=== PATIENT | male | born 1955 | race Caucasian/White ===

== ENCOUNTER 2017-06-02 08:36 | Outpatient (CLI) | payer BC ==
[2017-06-02 10:26] LABS: Mean Platelet Volume 7.2 fL (7.4-10.4); White Blood Cell (WBC) Count 6.1 thou/uL (4.8-10.8)
[2017-06-02 10:30] LABS: Bilirubin Negative (Negative); Blood, Urine Negative (Negative); Glucose, Urine (Dipstick) >=1000 mg/dL (Negative); Ketone, Urine Trace mg/dL (Negative); Nitrite Negative (Negative); Protein, Urine (Dipstick) Negative (Neg-Trace)
[2017-06-02 10:34] LABS: Bacteria/HPF None Seen HPF (None Seen); Hyaline Casts/LPF 0-3 HYALINE CAST LPF (0-3 Hyaline); RBC/HPF 0-3 HPF (0-3); Squamous Epithelial None Seen HPF (0-3); WBC/HPF None Seen HPF (0-3)
[2017-06-02 10:38] LABS: Prothrombin Time 12.6 SEC (12.0-14.7)
[2017-06-02 10:43] LABS: Anion Gap 14 mmol/L (10-20); BUN (Urea Nitrogen) 15 mg/dL (8.4-25.7); Calc. Creatinine Clearance 0 mL/min (70-130); Calcium 10.5 mg/dL (7.8-10.44); Carbon Dioxide 24 mmol/L (23-31); Chloride 103 mmol/L (98-107); Estimated GFR-MDRD 82
--- NOTE | 2017-06-03 07:55 | EKG ---
Test Reason : Blood Pressure : / mmHG Vent. Rate : 085 BPM Atrial Rate : 085 BPM P-R Int : 162 ms QRS Dur : 094 ms QT Int : 374 ms P-R-T Axes : 050 039 046 degrees QTc Int : 445 ms Normal sinus rhythm RSR' or QR pattern in V1 suggests right ventricular conduction delay Borderline ECG No previous ECGs available Confirmed by COLLIN LAMBERT ([id number]) on 06/03/2017 7:54:36 AM Referred By: Jonathan BETANCUR Confirmed By:COLLIN LAMBERT
== END 2017-06-02 08:37 | disposition home or self-care (01) ==
LOC: LABBT 08:36
PROVIDERS: ATTEND Orthopaedic Surgery
DX: Z01.818 Encounter for other preprocedural examination (principal); M17.32 Unilateral post-traumatic osteoarthritis, left knee
CPT/HCPCS: 80048; 81001; 85027; 85610; 86850; 86900; 86901; 87081; 93005; 93010

== ENCOUNTER 2017-06-02 09:00 | Inpatient (IN) | payer BC ==
[2017-06-02 09:14] VITALS: BMI 30.9
--- NOTE | 2017-06-04 09:20 | HP ---
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 He underwent knee arthroscopy in 1977 and ACL reconstructio n in approximately 1989. He has felt progressive pain despite rest, restriction of activities, anti- inflammatory medications, and cortisone injections. He is also taking Glucosamine with some relief. The pain has now progressed to the point it is interfering with day to day activities, including wal srinivas, getting dressed, and sleeping. PAST MEDICAL HISTORY: The patient has a history of gout and diabetes. CURRENT MEDICATIONS: Include Dulaglutide, Cialis, low dose aspirin, glucosamine, multivitamins, metf ormin, Januvia, Invokana, simvastatin. ALLERGIES: He is allergic to FISH, PENICILLIN and KEFLEX. FAMILY HISTORY/SOCIAL HISTORY/REVIEW OF SYSTEMS: Otherwise unremarkable. 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 PHYSICAL EXAMINATION: GENERAL: Reveals a healthy heavyset male. HEENT: Unremarkable. NECK: Supple. CHEST: Clear. HEART: Regular rate and rhythm. ABDOMEN: Soft, nontender. RECTAL/GENITAL: Deferred. EXTREMITIES: Pertinent findings related to the left knee. There is no definite effusion. There is mild varus. There is tenderness and crepitus over the medial joint line. Range of motion is 5-125 d egrees. Previous surgical wounds are healed. Neurovascular exam is intact. Pulses are 1+. LABORATORY AND X-RAY FINDINGS: X-rays of the left knee reveal tricompartmental DJD with progression from previous x-rays and evidence of previous ACL reconstruction with presence of interference screws . IMPRESSION: 1. Post-traumatic degenerative arthritis, left knee. 2. Type 2 diabetes. PLAN: Left total knee replacement and probable removal of at least some of the previous implants. T he nature of the surgery, length of recovery, and potential complications such as infection, loss of motion, incomplete relief, delayed wound healing, neurovascular injury, thromboembolic phenomenon, po ssible transfusion, and need for revision have been discussed in detail.
[2017-06-08] MEDS ORDERED: Vancomycin HCl 1.5 GM in Sodium Chloride 0.9% 250 ML 300 ML IVPB SCH ×2 (06:00→20:00)
[2017-06-08] MEDS ORDERED: Tranexamic Acid 1,000 MG/100 ML BAG ONE ×2 (06:10→09:55)
[2017-06-08] MEDS ORDERED: Levofloxacin 500 mg/D5W 100 ml Premix Bag ONE (06:10)
[2017-06-08] MEDS ORDERED: Fentanyl 100 MCG/2 ML VIAL ONE (06:18)
[2017-06-08] MEDS ORDERED: Midazolam HCl 2 mg/2 ml Vial ONE (06:18)
[2017-06-08] MEDS ORDERED: Ropivacaine 0.2% HCl/PF 20 ML ONE (06:18)
[2017-06-08] MEDS ORDERED: Ondansetron HCl/PF 4 MG/2 ML Vial ONE ×2 (06:23→15:44)
[2017-06-08] MEDS ORDERED: Bupivacaine/Epinephrine 0.25% 30 ML VIAL ONE (06:35)
[2017-06-08] MEDS ORDERED: Lidocaine 1% w/Epinephrine 1:200K 30 ML VIAL ONE (06:35)
[2017-06-08] MEDS ORDERED: Zolpidem Tartrate 5 MG TAB PO PRN ×2 (07:45→10:48)
[2017-06-08] MEDS ORDERED: Ropivacaine HCl/PF 250 ML in Premix Bag 1 BAG NERVE BLCK SCH (07:45)
[2017-06-08] MEDS ORDERED: traMADol HCl 50 MG TAB PO PRN ×2 (07:45)
[2017-06-08] MEDS ORDERED: Promethazine HCl 25 MG/ML VIAL IM PRN ×2 (07:45→08:21)
[2017-06-08] MEDS ORDERED: HYDROcodone/Acetaminophen 10/325 mg Tablet PO PRN ×3 (07:45→10:48)
[2017-06-08] MEDS ORDERED: Ondansetron HCl/PF 4 MG/2 ML Vial IVP PRN ×2 (07:45→08:21)
[2017-06-08] MEDS ORDERED: Fentanyl 100 MCG/2 ML VIAL IV PRN (07:46)
[2017-06-08] MEDS ORDERED: Promethazine HCl 25 MG/ML VIAL SLOW IVP PRN ×2 (08:21→10:48)
[2017-06-08] MEDS ORDERED: Tranexamic Acid 1,000 MG in Sodium Chloride 0.9% 100 ML IVPB SCH ×2 (10:00→10:48)
[2017-06-08] MEDS ORDERED: Fentanyl 100 MCG/2 ML VIAL SLOW IVP PRN ×2 (10:48)
[2017-06-08] MEDS ORDERED: Acetaminophen 325 MG TAB PO PRN (10:48)
[2017-06-08] MEDS ORDERED: diphenhydrAMINE 25 MG CAP PO PRN (10:48)
--- NOTE | 2017-06-08 11:55 | RAD ---
TWO VIEWS OF THE LEFT KNEE: 06/08/2017 HISTORY: Evaluate knee following arthroplasty. FINDINGS: There is postoperative gas within the left knee joint. The patient is status post total knee arthrop lasty with no evidence for hardware failure. No acute fracture or dislocation. IMPRESSION: Postoperative change, consistent with recent total knee arthroplasty. POS: [facility]
[2017-06-08] MEDS ORDERED: Aspirin 81 mg Enteric Coated Tablet PO SCH (12:00)
[2017-06-08] MEDS ORDERED: Dextrose 50% Abboject 50 ML SYRINGE SLOW IVP PRN (12:24)
[2017-06-08] MEDS ORDERED: Benzonatate 100 MG CAP PO PRN (12:24)
[2017-06-08] MEDS ORDERED: cloNIDine 0.1 MG TAB PO PRN (12:24)
[2017-06-08] MEDS ORDERED: Dextrose 5% in Water 1,000 ML IV PRN (12:24)
[2017-06-08] MEDS ORDERED: Mag-Al 1200 mg/1200 mg/30 ML UDCUP PO PRN (12:24)
[2017-06-08] MEDS ORDERED: hydrALAZINE 20 MG/ML VIAL SLOW IVP PRN (12:24)
[2017-06-08] MEDS ORDERED: Loratadine 10 MG TAB PO PRN (12:24)
[2017-06-08] MEDS ORDERED: Lorazepam 1 MG TAB PO PRN (12:24)
[2017-06-08] MEDS ORDERED: Diabetic Tussin 200 MG/10 ML UDCUP PO PRN (12:24)
[2017-06-08] MEDS ORDERED: Calcium Carbonate 500 MG ChewTAB PO PRN (12:24)
[2017-06-08] MEDS ORDERED: Senokot 8.6 MG TAB PO PRN (12:24)
[2017-06-08] MEDS ORDERED: HumaLOG 300 UNITS/3 ML VIAL SC PRN (12:24)
[2017-06-08] MEDS ORDERED: Bisacodyl 5 MG TAB PO PRN (12:24)
[2017-06-08] MEDS ORDERED: Nitroglycerin 0.4 MG TAB (25 Tab Bottle) SL PRN (12:24)
--- NOTE | 2017-06-08 12:28 | OP ---
DATE OF PROCEDURE: 06/08/2017 SURGEON: Alvin Scanlon M.D. ANESTHESIA: General plus femoral and sciatic nerve blocks. PREOPERATIVE DIAGNOSIS: Posttraumatic degenerative arthritis, left knee. POSTOPERATIVE DIAGNOSIS: Posttraumatic degenerative arthritis, left knee. PROCEDURES: Left total knee replacement with computer-assisted navigation with cemented Triathlon co mponents with #5 femoral component and #5 tibial baseplate with 11 mm CS tibial insert, and A35 all p lastic patellar component. OPERATIVE FINDINGS: There was marked degenerative arthritis of the knee, especially medially with la rge areas of exposed bone. There was abundant scar tissue from his previous ACL reconstruction. The interference screw in the proximal tibia did not represented itself and not appear to be interfering with the seating of the keel of the tibial tray and therefore elected to leave it in place. NARRATIVE REPORT: After satisfactory anesthesia was induced in supine position, sequential compressi on device was placed on the non-operative leg throughout the procedure. Left leg was then prepped an d draped in the routine manner. The leg was elevated, exsanguinated with an Esmarch bandage, and the tourniquet inflated to 300 mmHg. A gently curved medial parapatellar incision was made incorporatin g a portion of the previous incision and carried down to subcutaneous tissues. Bleeding points contr olled with Bovie cautery. Medial parapatellar arthrotomy was performed. Patella was dislocated late rally and portions of the fat pad were excised for exposure. The above findings were noted. Menisca l remnants and osteophytes were removed. Using the [employer] pinless navigation system and the appropr iate guides, the distal femoral and proximal tibial articular surfaces were excised with an oscillati ng saw to accept the trial components. It was felt that a #5 femoral component and #5 primary new ti bial baseplate with 11 mm CS plastic insert gave appropriate size, fit, stability, and correction of the preoperative deformity. The patellar articular surface was excised to accept an all plastic A35 patellar component. The trial components were removed. The posterior capsule and subcutaneous tissu es were injected with a mixture of 30 mL of 0.25% Marcaine with epinephrine and 60 mL of 1% lidocaine with epinephrine. The knee was copiously irrigated with pulsatile lavage and bony surfaces thorough ly cleaned and dried. The permanent components were then cemented in a single stage using 1 package of cement premixed with 1 gram of tobramycin powder. Excess cement was removed. There was again goo d fit and stability of the components. The knee was then again copiously irrigated. The medial reti naculum and quadriceps mechanism was closed with interrupted #2 Vicryl and a running #2 Quill. Subcu taneous tissues were closed with running 0 Quill suture and the skin closed with running subcuticular 3-0 Monoderm and SurgiSeal skin adhesive. A sterile bulky compressive dressing was applied and the tourniquet deflated after 107 minutes. The foot promptly pinked up and a sequential compression wesley ce was placed on his operated leg. He was awakened and taken to recovery room in stable condition. There were no apparent intraoperative complications. The estimated blood loss was less than 100 mL
--- NOTE | 2017-06-08 12:59 | PDOC.PN ---
- Subjective Encounter Start Date: 06/08/17 Encounter Start Time: 12:57 Subjective: s/p Left TKR,feels well. worked w PT. -: denies any dizziness/weakness/chest pain/SOB -: IM team consulted for medical mangement.PCP- - Objective MAR Reviewed: Yes Vital Signs & Weight: Weight Weight 216 lb Additional Labs: Laboratory Tests 12/25/16 06/02/17 06/02/17 08:39 09:00 09:00 WBC 6.1 Hgb 15.3 Hct 45.0 Plt Count 224 PT INR Sodium 137 Potassium 4.0 Chloride 103 Carbon Dioxide 24 BUN 15 Creatinine 0.94 Glucose 190 H Hemoglobin A1c 7.8 H 06/02/17 09:00 WBC Hgb Hct Plt Count PT 12.6 INR 0.9 Sodium Potassium Chloride Carbon Dioxide BUN Creatinine Glucose Hemoglobin A1c Phys Exam - Physical Examination Constitutional: NAD HEENT: PERRLA, moist MMs, sclera anicteric, oral pharynx no lesions Neck: no nodes, no JVD, supple, full ROM Respiratory: no wheezing, no rales, no rhonchi, clear to auscultation bilateral Cardiovascular: RRR, no significant murmur, no rub, gallop, irregular Gastrointestinal: soft, non-tender, no distention Musculoskeletal: no edema, pulses present Neurological: non-focal, normal sensation, moves all 4 limbs Psychiatric: normal affect, A&O x 3 Skin: no rash Dx/Plan (1) DM2 (diabetes mellitus, type 2) Status: Chronic Qualifiers: Diabetes mellitus complication status: with hyperglycemia Diabetes mellitus roasterman insulin use: without roasterman use Qualified Code(s): E11.65 - Type 2 diabetes mellitus with hyperglycemia (2) S/P TKR (total knee replacement) Code(s): Z96.659 - PRESENCE OF UNSPECIFIED ARTIFICIAL KNEE JOINT Status: Acute Qualifiers: Laterality: left Qualified Code(s): Z96.652 - Presence of left artificial knee joint - Plan plan discussed w/ family, PT/OT, social problems specialist, incentive spirometry, out of bed/ambulate, DVT proph w/SCDs ASA BID fo rDVT prophylaxis. add PPI for GI prophylaxis. -: Add ISS for Blood sugar control.Cont. Oral hypoglycemics.Accuchecks achs -: am labs. -: hemodynamically stable.meds reviewed. -: add prn anti-hypertensives. will follow * . Review of Systems - Review of Systems Constitutional: negative: Fever, Chills, Sweats, Weakness, Malaise, Other ENT: negative: Ear Pain, Ear Discharge, Nose Pain, Nose Discharge, Nose Congestion, Mouth Pain, Mouth Swelling, Throat Pain, Throat Swelling, Other Respiratory: negative: Cough, Dry, Shortness of Breath, Hemoptysis, SOB with Excertion, Pleuritic Pain, Sputum, Wheezing Cardiovascular: negative: Chest Pain, Palpitations, Orthopnea, Paroxysmal Noc. Dyspnea, Edema, Light Headedness, Other Gastrointestinal: negative: Nausea, Vomiting, Abdominal Pain, Diarrhea, Constipation, Melena, Hematochezia, Other Genitourinary: negative: Dysuria, Frequency, Incontinence, Hematuria, Retention , Other Musculoskeletal: negative: Neck Pain, Shoulder Pain, Arm Pain, Back Pain, Hand Pain, Leg Pain, Foot Pain, Other Neurological: negative: Weakness, Numbness, Incoordination, Change in Speech, Confusion, Seizures, Other - Medications/Allergies Allergies/Adverse Reactions: Allergies Allergy/AdvReac Type Severity Reaction Status Date / Time cephalexin monohydrate Allergy Verified 02/12/13 14:21 [From Keflex] Fish Containing Products Allergy facial Verified 06/02/17 09:15 swelling, hives, n/v Penicillins Allergy Verified 02/12/13 14:21 Medications: Current Medications Acetaminophen (Tylenol) 650 mg PO Q4H PRN PRN Reason: GUZMAN/ T > 101F; Mild Pain (1-3) Hydrocodone Bitart/Acetaminophen ([place]camore 10/325) 1 tab PO Q4H PRN PRN Reason: Pain (1-3) Hydrocodone Bitart/Acetaminophen ([place]camore 10/325) 2 tab PO Q4H PRN PRN Reason: PAIN (4-6) Hydrocodone Bitart/Acetaminophen ([place]camore 10/325) 1 tab PO Q4H PRN PRN Reason: Moderate Pain (4-6) Hydrocodone Bitart/Acetaminophen ([place]camore 10/325) 2 tab PO Q4H PRN PRN Reason: Severe Pain (7-10) Al Hydroxide/Mg Hydroxide (Maalox) 15 ml PO Q4H PRN PRN Reason: Heartburn or Indigestion Alogliptin Benzoate (Alogliptin) 25 mg PO DAILY [facility] Aspirin (Ecotrin) 81 mg PO BID [facility] Aspirin (Ecotrin) 81 mg PO NOW [facility] Stop: 06/08/17 14:00 Benzonatate (Tessalon) 100 mg PO Q4H PRN PRN Reason: Cough Bisacodyl (Dulcolax) 10 mg PO DAILYPRN PRN PRN Reason: Constipation Calcium Carbonate (Tums) 1,000 mg PO Q4H PRN PRN Reason: Heartburn or Indigestion Calcium/Vitamin D (Caltrate 600 + Vit D) 1 tab PO BID [facility] Clonidine (Catapres) 0.1 mg PO Q4H PRN PRN Reason: Systolic BP > 160 Dextrose/Water (Dextrose 50%) 25 gm SLOW IVP PRN PRN PRN Reason: Hypoglycemia Diphenhydramine HCl (Benadryl) 25 mg PO Q6H PRN PRN Reason: Itching Fentanyl (Sublimaze) 50 mcg IV Q1H PRN PRN Reason: BREAKTHRU PAIN Fentanyl (Sublimaze) 50 mcg SLOW IVP Q30MIN PRN PRN Reason: Moderate Pain (4-6) Fentanyl (Sublimaze) 100 mcg SLOW IVP Q1H PRN PRN Reason: Severe Pain (7-10) Ferrous Gluconate (Fergon) 324 mg PO BID [facility] Glucagon (Glucagon) 1 mg IM PRN PRN PRN Reason: Hypoglycemia Guaifenesin (Robitussin Sf) 200 mg PO Q4H PRN PRN Reason: Cough Hydralazine HCl (Apresoline) 10 mg SLOW IVP Q4H PRN PRN Reason: Systolic BP > 170 Ropivacaine 250 ml/ Device 250 mls @ 10 mls/hr NERVE BLCK INF [facility] Tranexamic Acid 1,000 mg/ (Sodium Chloride) 110 mls @ 200 mls/hr IVPB ONE [facility] Stop: 06/08/17 14:00 Levofloxacin 500 mg/ Device 100 mls @ 100 mls/hr IVPB Q24HR [facility] Stop: 06/09/17 06:59 Sodium Chloride (Normal Saline 0.9%) 1,000 mls @ 100 mls/hr IV .Q10H [facility] Vancomycin HCl 1.5 gm/ Sodium (Chloride) 300 mls @ 200 mls/hr IVPB 2000 [facility] Stop: 06/08/17 21:29 Dextrose/Water (D5w) 1,000 mls @ 0 mls/hr IV .Q0M PRN; As Directed PRN Reason: Hypoglycemia Insulin Human Lispro (Humalog) 0 units SC .MODERATE SLIDING SC PRN PRN Reason: Moderate Correctional Scale Insulin Human Lispro (Humalog) 0 units SC .BEDTIME SLIDING SC PRN PRN Reason: Bedtime Correctional Scale Iron/Minerals/Multivitamins (Theragran M) 1 tab PO DAILY [facility] Ketorolac Tromethamine (Toradol) 30 mg IVP Q6HR [facility] Stop: 06/10/17 06:01 Ketorolac Tromethamine (Toradol) 30 mg IVP Q8HR [facility] Stop: 06/10/17 14:01 Loratadine (Claritin) 10 mg PO DAILYPRN PRN PRN Reason: Sinus Symptoms Lorazepam (Ativan) 1 mg PO Q4H PRN PRN Reason: Anxiety/Agitation Metformin HCl (Glucophage) 1,000 mg PO BID-[facility] Nitroglycerin (Nitrostat) 0.4 mg SL Q5MIN PRN PRN Reason: Chest Pain Ondansetron HCl (Zofran) 4 mg IVP Q6H PRN PRN Reason: Nausea/Vomiting Ondansetron HCl (Zofran) 4 mg IVP Q6H PRN PRN Reason: Nausea/Vomiting Pantoprazole Sodium (Protonix) 40 mg PO DAILY [facility] Pantoprazole Sodium (Protonix) 40 mg PO ONE ONE Stop: 06/08/17 12:27 Promethazine HCl (Phenergan) 12.5 mg IM Q4H PRN PRN Reason: Nausea Promethazine HCl (Phenergan) 12.5 mg SLOW IVP Q4H PRN PRN Reason: Nausea/Vomiting Senna (Senokot) 2 tab PO HSPRN PRN PRN Reason: Constipation Senna/Docusate Sodium (Senokot S) 2 tab PO BID [facility] Simvastatin (Zocor) 40 mg PO HS [facility] Sodium Chloride (Flush - Normal Saline) 10 ml IVF PRN PRN PRN Reason: Saline Flush Tramadol HCl (Ultram) 50 mg PO Q6H PRN PRN Reason: Mild Pain (1-3) Tramadol HCl (Ultram) 100 mg PO Q6H PRN PRN Reason: Moderate Pain 4-6 Tramadol HCl (Ultram) 100 mg PO Q6H PRN PRN Reason: Mild Pain (1-3) Zolpidem Tartrate (Ambien) 5 mg PO HSPRN PRN PRN Reason: Insomnia Zolpidem Tartrate (Ambien) 5 mg PO HSPRN PRN PRN Reason: Insomnia
[2017-06-08] MEDS ORDERED: Ketorolac Tromethamine 30 MG/ML VIAL IVP SCH (14:00)
[2017-06-08] MEDS: Sodium Chloride 0.9% 1,000 ML IV SCH ×2 (14:32→20:38)
[2017-06-08] MEDS: Senokot S 8.6-50 MG TAB PO SCH ×2 (14:33→20:39)
[2017-06-08] MEDS: Ketorolac Tromethamine 30 MG/ML VIAL IVP SCH ×3 (14:57→23:18)
[2017-06-08] MEDS ORDERED: Propofol 200 MG/20 ML VIAL ONE (15:44)
[2017-06-08] MEDS ORDERED: Lidocaine 1% PF 5 ML VIAL ONE (15:44)
[2017-06-08] MEDS ORDERED: PHENYLEPHRINE-NS 100 MCG/ML 10 ML SYRINGE ONE (15:44)
[2017-06-08] MEDS ORDERED: Ketorolac Tromethamine 30 MG/ML VIAL ONE (15:44)
[2017-06-08] MEDS ORDERED: Ropivacaine 0.2% HCl/PF (40 MG/20 ML VIAL) ONE (16:22)
[2017-06-08] MEDS: HumaLOG 300 UNITS/3 ML VIAL SC PRN (16:46)
[2017-06-08] MEDS: metFORMIN 500 MG TAB PO SCH (16:48)
[2017-06-08] MEDS: Aspirin 81 mg Enteric Coated Tablet PO SCH (20:39)
[2017-06-08] MEDS: Simvastatin 40 MG TAB PO SCH (20:39)
[2017-06-08] MEDS: Calcium Carbonate + Vit D 1 TAB PO SCH (20:39)
[2017-06-08] MEDS ORDERED: Aspirin 325 MG TAB PO SCH (21:00)
[2017-06-08] MEDS: HYDROcodone/Acetaminophen 10/325 mg Tablet PO PRN (21:47)
[2017-06-09] MEDS: Ondansetron HCl/PF 4 MG/2 ML Vial IVP PRN (02:49)
[2017-06-09] MEDS: HYDROcodone/Acetaminophen 10/325 mg Tablet PO PRN ×4 (02:54→16:53)
[2017-06-09] MEDS: Ketorolac Tromethamine 30 MG/ML VIAL IVP SCH ×3 (05:40→16:55)
[2017-06-09] MEDS: HumaLOG 300 UNITS/3 ML VIAL SC PRN (05:54)
[2017-06-09 06:07] LABS: Hematocrit 38.2 % (42.0-52.0); Mean Platelet Volume 6.9 fL (7.4-10.4); Red Blood Cell (RBC) Count 4.21 mill/uL (4.70-6.10); White Blood Cell (WBC) Count 8.1 thou/uL (4.8-10.8)
[2017-06-09 06:24] LABS: Anion Gap 10 mmol/L (10-20); BUN (Urea Nitrogen) 17 mg/dL (8.4-25.7); Calc. Creatinine Clearance 116 mL/min (70-130); Calcium 9.8 mg/dL (7.8-10.44); Carbon Dioxide 24 mmol/L (23-31); Chloride 106 mmol/L (98-107); Estimated GFR-MDRD 83
[2017-06-09] MEDS: Sodium Chloride 0.9% 1,000 ML IV SCH ×2 (06:34→17:47)
[2017-06-09] MEDS: Senokot S 8.6-50 MG TAB PO SCH ×2 (08:36→20:28)
[2017-06-09] MEDS: Calcium Carbonate + Vit D 1 TAB PO SCH ×2 (08:37→20:28)
[2017-06-09] MEDS: Ferrous Gluconate 324 MG TAB PO SCH ×2 (08:38→20:28)
[2017-06-09] MEDS: Aspirin 81 mg Enteric Coated Tablet PO SCH ×2 (08:38→20:28)
[2017-06-09] MEDS: Alogliptin Benzoate 25 MG TABLET PO SCH (08:38)
[2017-06-09] MEDS: Multivitamin W/ Minerals 1 TAB PO SCH (08:38)
[2017-06-09] MEDS: metFORMIN 500 MG TAB PO SCH ×2 (08:38→16:54)
[2017-06-09] MEDS: traMADol HCl 50 MG TAB PO PRN ×2 (10:45→20:26)
--- NOTE | 2017-06-09 13:31 | PDOC.PN ---
- Subjective Encounter Start Date: 06/09/17 Encounter Start Time: 13:30 Subjective: feels well. walked w PT.no new complaints - Objective MAR Reviewed: Yes Vital Signs & Weight: Vital Signs (12 hours) Temp Pulse Resp BP Pulse Ox 06/09/17 12:38 98.5 F 93 16 134/70 93 L 06/09/17 08:23 98.3 F 99 16 142/83 H 96 06/09/17 08:00 98.3 F 99 16 96 06/09/17 04:00 98.5 F 88 18 144/87 H 97 Weight Admit Weight 216 lb Weight 216 lb I&O: 06/08/17 06/09/17 06/10/17 06:59 06:59 06:59 Intake Total 2685 Output Total 600 Balance 2084 Result Diagrams: 06/09/17 04:47 06/09/17 04:47 Additional Labs: Accuchecks 06/09/17 06/08/17 06/08/17 05:52 20:47 16:36 POC Glucose 170 H 176 H 197 H Phys Exam - Physical Examination Constitutional: NAD HEENT: PERRLA, moist MMs, sclera anicteric, oral pharynx no lesions Neck: no nodes, no JVD, supple, full ROM Respiratory: no wheezing, no rales, no rhonchi, clear to auscultation bilateral Cardiovascular: RRR, no significant murmur, no rub, gallop Gastrointestinal: soft, non-tender, no distention, positive bowel sounds Musculoskeletal: no edema, pulses present Neurological: non-focal, normal sensation, moves all 4 limbs Psychiatric: normal affect, A&O x 3 Dx/Plan (1) DM2 (diabetes mellitus, type 2) Status: Chronic Qualifiers: Diabetes mellitus complication status: with hyperglycemia Diabetes mellitus terminal manager insulin use: without terminal manager use Qualified Code(s): E11.65 - Type 2 diabetes mellitus with hyperglycemia (2) S/P TKR (total knee replacement) Code(s): Z96.659 - PRESENCE OF UNSPECIFIED ARTIFICIAL KNEE JOINT Status: Acute Qualifiers: Laterality: left Qualified Code(s): Z96.652 - Presence of left artificial knee joint - Plan plan discussed w/ family, respiratory therapy, incentive spirometry, out of bed/ ambulate, DVT proph w/SCDs hemodynamically stable.labs reviewed. -: cont ISS w accuchecks. sugars somewhat high but reasonable. -: cont home meds as started. -: DVT,GI prophylaxis -: IM team will follow * . Review of Systems - Review of Systems Constitutional: negative: Fever, Chills, Sweats, Weakness, Malaise, Other ENT: negative: Ear Pain, Ear Discharge, Nose Pain, Nose Discharge, Nose Congestion, Mouth Pain, Mouth Swelling, Throat Pain, Throat Swelling, Other Respiratory: negative: Cough, Dry, Shortness of Breath, Hemoptysis, SOB with Excertion, Pleuritic Pain, Sputum, Wheezing Cardiovascular: negative: Chest Pain, Palpitations, Orthopnea, Paroxysmal Noc. Dyspnea, Edema, Light Headedness, Other Gastrointestinal: negative: Nausea, Vomiting, Abdominal Pain, Diarrhea, Constipation, Melena, Hematochezia, Other Genitourinary: negative: Dysuria, Frequency, Incontinence, Hematuria, Retention , Other Musculoskeletal: negative: Neck Pain, Shoulder Pain, Arm Pain, Back Pain, Hand Pain, Leg Pain, Foot Pain, Other Neurological: negative: Weakness, Numbness, Incoordination, Change in Speech, Confusion, Seizures, Other - Medications/Allergies Allergies/Adverse Reactions: Allergies Allergy/AdvReac Type Severity Reaction Status Date / Time cephalexin monohydrate Allergy Verified 02/12/13 14:21 [From Keflex] Fish Containing Products Allergy facial Verified 06/02/17 09:15 swelling, hives, n/v Penicillins Allergy Verified 02/12/13 14:21 Medications: Current Medications Acetaminophen (Tylenol) 650 mg PO Q4H PRN PRN Reason: GUZMAN/ T > 101F; Mild Pain (1-3) Last Admin: 06/08/17 19:10 Dose: 650 mg Hydrocodone Bitart/Acetaminophen ([place] 10/325) 1 tab PO Q4H PRN PRN Reason: Moderate Pain (4-6) Hydrocodone Bitart/Acetaminophen ([place] 10/325) 2 tab PO Q4H PRN PRN Reason: Severe Pain (7-10) Last Admin: 06/09/17 12:35 Dose: 2 tab Al Hydroxide/Mg Hydroxide (Maalox) 15 ml PO Q4H PRN PRN Reason: Heartburn or Indigestion Alogliptin Benzoate (Alogliptin) 25 mg PO DAILY [facility] Last Admin: 06/09/17 08:38 Dose: 25 mg Aspirin (Ecotrin) 81 mg PO BID [facility] Last Admin: 06/09/17 08:38 Dose: 81 mg Benzonatate (Tessalon) 100 mg PO Q4H PRN PRN Reason: Cough Bisacodyl (Dulcolax) 10 mg PO DAILYPRN PRN PRN Reason: Constipation Calcium Carbonate (Tums) 1,000 mg PO Q4H PRN PRN Reason: Heartburn or Indigestion Calcium/Vitamin D (Caltrate 600 + Vit D) 1 tab PO BID [facility] Last Admin: 06/09/17 08:37 Dose: 1 tab Clonidine (Catapres) 0.1 mg PO Q4H PRN PRN Reason: Systolic BP > 160 Dextrose/Water (Dextrose 50%) 25 gm SLOW IVP PRN PRN PRN Reason: Hypoglycemia Diphenhydramine HCl (Benadryl) 25 mg PO Q6H PRN PRN Reason: Itching Fentanyl (Sublimaze) 50 mcg SLOW IVP Q30MIN PRN PRN Reason: Moderate Pain (4-6) Fentanyl (Sublimaze) 100 mcg SLOW IVP Q1H PRN PRN Reason: Severe Pain (7-10) Ferrous Gluconate (Fergon) 324 mg PO BID [facility] Last Admin: 06/09/17 08:38 Dose: 324 mg Glucagon (Glucagon) 1 mg IM PRN PRN PRN Reason: Hypoglycemia Guaifenesin (Robitussin Sf) 200 mg PO Q4H PRN PRN Reason: Cough Hydralazine HCl (Apresoline) 10 mg SLOW IVP Q4H PRN PRN Reason: Systolic BP > 170 Ropivacaine 250 ml/ Device 250 mls @ 10 mls/hr NERVE BLCK INF [facility] Sodium Chloride (Normal Saline 0.9%) 1,000 mls @ 100 mls/hr IV .Q10H [facility] Last Admin: 06/09/17 06:34 Dose: Not Given Dextrose/Water (D5w) 1,000 mls @ 0 mls/hr IV .Q0M PRN; As Directed PRN Reason: Hypoglycemia Insulin Human Lispro (Humalog) 0 units SC .MODERATE SLIDING SC PRN PRN Reason: Moderate Correctional Scale Last Admin: 06/09/17 05:54 Dose: 2 unit Insulin Human Lispro (Humalog) 0 units SC .BEDTIME SLIDING SC PRN PRN Reason: Bedtime Correctional Scale Iron/Minerals/Multivitamins (Theragran M) 1 tab PO DAILY [facility] Last Admin: 06/09/17 08:38 Dose: 1 tab Ketorolac Tromethamine (Toradol) 30 mg IVP Q6HR [facility] Stop: 06/10/17 06:01 Last Admin: 06/09/17 12:07 Dose: 30 mg Loratadine (Claritin) 10 mg PO DAILYPRN PRN PRN Reason: Sinus Symptoms Lorazepam (Ativan) 1 mg PO Q4H PRN PRN Reason: Anxiety/Agitation Metformin HCl (Glucophage) 1,000 mg PO BID-[facility] Last Admin: 06/09/17 08:38 Dose: 1,000 mg Nitroglycerin (Nitrostat) 0.4 mg SL Q5MIN PRN PRN Reason: Chest Pain Ondansetron HCl (Zofran) 4 mg IVP Q6H PRN PRN Reason: Nausea/Vomiting Last Admin: 06/09/17 02:49 Dose: 4 mg Pantoprazole Sodium (Protonix) 40 mg PO DAILY [facility] Last Admin: 06/09/17 08:38 Dose: 40 mg Promethazine HCl (Phenergan) 12.5 mg IM Q4H PRN PRN Reason: Nausea Promethazine HCl (Phenergan) 12.5 mg SLOW IVP Q4H PRN PRN Reason: Nausea/Vomiting Senna (Senokot) 2 tab PO HSPRN PRN PRN Reason: Constipation Senna/Docusate Sodium (Senokot S) 2 tab PO BID [facility] Last Admin: 06/09/17 08:36 Dose: 2 tab Simvastatin (Zocor) 40 mg PO HS [facility] Last Admin: 06/08/17 20:39 Dose: 40 mg Sodium Chloride (Flush - Normal Saline) 10 ml IVF PRN PRN PRN Reason: Saline Flush Tramadol HCl (Ultram) 50 mg PO Q6H PRN PRN Reason: Mild Pain (1-3) Tramadol HCl (Ultram) 100 mg PO Q6H PRN PRN Reason: Mild Pain (1-3) Last Admin: 06/09/17 10:45 Dose: 100 mg Zolpidem Tartrate (Ambien) 5 mg PO HSPRN PRN PRN Reason: Insomnia
[2017-06-09] MEDS: Simvastatin 40 MG TAB PO SCH (20:28)
[2017-06-10] MEDS: Ketorolac Tromethamine 30 MG/ML VIAL IVP SCH ×2 (00:01→05:39)
[2017-06-10] MEDS: Ondansetron HCl/PF 4 MG/2 ML Vial IVP PRN (00:11)
[2017-06-10] MEDS: HYDROcodone/Acetaminophen 10/325 mg Tablet PO PRN ×4 (01:09→14:46)
[2017-06-10] MEDS: Sodium Chloride 0.9% 1,000 ML IV SCH ×2 (02:03→14:12)
[2017-06-10] MEDS: HumaLOG 300 UNITS/3 ML VIAL SC PRN (05:57)
[2017-06-10] MEDS: metFORMIN 500 MG TAB PO SCH (09:19)
[2017-06-10] MEDS: Senokot S 8.6-50 MG TAB PO SCH (09:19)
[2017-06-10] MEDS: Alogliptin Benzoate 25 MG TABLET PO SCH (09:19)
[2017-06-10] MEDS: Aspirin 81 mg Enteric Coated Tablet PO SCH (09:19)
[2017-06-10] MEDS: Multivitamin W/ Minerals 1 TAB PO SCH (09:19)
[2017-06-10] MEDS: Calcium Carbonate + Vit D 1 TAB PO SCH (09:20)
[2017-06-10] MEDS: Ferrous Gluconate 324 MG TAB PO SCH (09:20)
[2017-06-10] MEDS ORDERED: Dextrose 50% Abboject 50 ML SYRINGE SLOW IVP PRN (09:46)
[2017-06-10] MEDS ORDERED: Dextrose 5% in Water 1,000 ML IV PRN (09:46)
[2017-06-10] MEDS ORDERED: HumaLOG 300 UNITS/3 ML VIAL SC PRN (09:46)
[2017-06-10] MEDS ORDERED: cloNIDine 0.1 MG TAB PO PRN (09:47)
[2017-06-10] MEDS: traMADol HCl 50 MG TAB PO PRN (11:05)
[2017-06-10 12:42] VITALS: BP 161/94; TEMP 98.1
--- NOTE | 2017-06-10 14:51 | PDOC.PN ---
- Subjective Encounter Start Date: 06/10/17 Encounter Start Time: 14:49 Subjective: seen post PT.exhauseted but did very well w PT -: no new complaints - Objective MAR Reviewed: Yes Vital Signs & Weight: Vital Signs (12 hours) Temp Pulse Resp BP Pulse Ox 06/10/17 11:12 98.1 F 90 18 161/94 H 91 L 06/10/17 08:00 98.1 F 90 18 168/94 H 92 L 06/10/17 04:46 98.2 F 100 19 154/93 H 91 L Weight Admit Weight 216 lb Weight 216 lb I&O: 06/09/17 06/10/17 06/11/17 06:59 06:59 06:59 Intake Total 2685 1104 Output Total 600 1000 Balance 2085 104 Result Diagrams: 06/09/17 04:47 06/09/17 04:47 Additional Labs: Accuchecks 06/10/17 06/10/17 06/09/17 11:12 05:49 20:00 POC Glucose 176 H 244 H 164 H 06/09/17 15:44 POC Glucose 192 H Phys Exam - Physical Examination Constitutional: NAD HEENT: PERRLA, moist MMs, sclera anicteric, oral pharynx no lesions Neck: no nodes, no JVD, supple, full ROM Respiratory: no wheezing, no rales, no rhonchi, clear to auscultation bilateral Cardiovascular: RRR, no significant murmur Gastrointestinal: soft, non-tender, no distention, positive bowel sounds Musculoskeletal: no edema, pulses present Neurological: non-focal, normal sensation, moves all 4 limbs Psychiatric: normal affect, A&O x 3 Skin: no rash Dx/Plan (1) DM2 (diabetes mellitus, type 2) Status: Chronic Qualifiers: Diabetes mellitus complication status: with hyperglycemia Diabetes mellitus terminologist insulin use: without terminologist use Qualified Code(s): E11.65 - Type 2 diabetes mellitus with hyperglycemia (2) S/P TKR (total knee replacement) Code(s): Z96.659 - PRESENCE OF UNSPECIFIED ARTIFICIAL KNEE JOINT Status: Acute Qualifiers: Laterality: left Qualified Code(s): Z96.652 - Presence of left artificial knee joint - Plan DVT proph w/SCDs PT discharged by primary team.meds reviewed. OK to DC -: advised to resume Trulicity and f/u w PCP -: all Qs answered * . Review of Systems - Review of Systems Constitutional: negative: Fever, Chills, Sweats, Weakness, Malaise, Other ENT: negative: Ear Pain, Ear Discharge, Nose Pain, Nose Discharge, Nose Congestion, Mouth Pain, Mouth Swelling, Throat Pain, Throat Swelling, Other Respiratory: negative: Cough, Dry, Shortness of Breath, Hemoptysis, SOB with Excertion, Pleuritic Pain, Sputum, Wheezing Cardiovascular: negative: Chest Pain, Palpitations, Orthopnea, Paroxysmal Noc. Dyspnea, Edema, Light Headedness, Other Gastrointestinal: negative: Nausea, Vomiting, Abdominal Pain, Diarrhea, Constipation, Melena, Hematochezia, Other Genitourinary: negative: Dysuria, Frequency, Incontinence, Hematuria, Retention , Other Musculoskeletal: negative: Neck Pain, Shoulder Pain, Arm Pain, Back Pain, Hand Pain, Leg Pain, Foot Pain, Other Neurological: negative: Weakness, Numbness, Incoordination, Change in Speech, Confusion, Seizures, Other - Medications/Allergies Allergies/Adverse Reactions: Allergies Allergy/AdvReac Type Severity Reaction Status Date / Time cephalexin monohydrate Allergy Verified 02/12/13 14:21 [From [employer] [facility]] Fish Containing Products Allergy facial Verified 06/02/17 09:15 swelling, hives, n/v Penicillins Allergy Verified 02/12/13 14:21 Medications: Current Medications Acetaminophen (Tylenol) 650 mg PO Q4H PRN PRN Reason: GUZMAN/ T > 101F; Mild Pain (1-3) Last Admin: 06/08/17 19:10 Dose: 650 mg Hydrocodone Bitart/Acetaminophen ([place]ward 10/325) 1 tab PO Q4H PRN PRN Reason: Moderate Pain (4-6) Hydrocodone Bitart/Acetaminophen ([place]ward 10/325) 2 tab PO Q4H PRN PRN Reason: Severe Pain (7-10) Last Admin: 06/10/17 14:46 Dose: 2 tab Al Hydroxide/Mg Hydroxide (Maalox) 15 ml PO Q4H PRN PRN Reason: Heartburn or Indigestion Alogliptin Benzoate (Alogliptin) 25 mg PO DAILY [facility] Last Admin: 06/10/17 09:19 Dose: 25 mg Aspirin (Ecotrin) 81 mg PO BID [facility] Last Admin: 06/10/17 09:19 Dose: 81 mg Benzonatate (Tessalon) 100 mg PO Q4H PRN PRN Reason: Cough Bisacodyl (Dulcolax) 10 mg PO DAILYPRN PRN PRN Reason: Constipation Calcium Carbonate (Tums) 1,000 mg PO Q4H PRN PRN Reason: Heartburn or Indigestion Calcium/Vitamin D (Caltrate 600 + Vit D) 1 tab PO BID [facility] Last Admin: 06/10/17 09:20 Dose: 1 tab Clonidine (Catapres) 0.1 mg PO Q4H PRN PRN Reason: Systolic BP > 150 Dextrose/Water (Dextrose 50%) 25 gm SLOW IVP PRN PRN PRN Reason: Hypoglycemia Dextrose/Water (Dextrose 50%) 25 gm SLOW IVP PRN PRN PRN Reason: Hypoglycemia Diphenhydramine HCl (Benadryl) 25 mg PO Q6H PRN PRN Reason: Itching Fentanyl (Sublimaze) 50 mcg SLOW IVP Q30MIN PRN PRN Reason: Moderate Pain (4-6) Last Admin: 06/10/17 11:23 Dose: 50 mcg Fentanyl (Sublimaze) 100 mcg SLOW IVP Q1H PRN PRN Reason: Severe Pain (7-10) Ferrous Gluconate (Fergon) 324 mg PO BID [facility] Last Admin: 06/10/17 09:20 Dose: 324 mg Glucagon (Glucagon) 1 mg IM PRN PRN PRN Reason: Hypoglycemia Glucagon (Glucagon) 1 mg IM PRN PRN PRN Reason: Hypoglycemia Guaifenesin (Robitussin Sf) 200 mg PO Q4H PRN PRN Reason: Cough Hydralazine HCl (Apresoline) 10 mg SLOW IVP Q4H PRN PRN Reason: Systolic BP > 170 Ropivacaine 250 ml/ Device 250 mls @ 10 mls/hr NERVE BLCK INF [facility] Last Admin: 06/09/17 20:23 Dose: 250 mls Sodium Chloride (Normal Saline 0.9%) 1,000 mls @ 100 mls/hr IV .Q10H [facility] Last Admin: 06/10/17 14:12 Dose: Not Given Dextrose/Water (D5w) 1,000 mls @ 0 mls/hr IV .Q0M PRN; As Directed PRN Reason: Hypoglycemia Dextrose/Water (D5w) 1,000 mls @ 0 mls/hr IV .Q0M PRN; As Directed PRN Reason: Hypoglycemia Insulin Human Lispro (Humalog) 0 units SC .BEDTIME SLIDING SC PRN PRN Reason: Bedtime Correctional Scale Insulin Human Lispro (Humalog) 0 units SC .AGGRESSIVE SLIDING PRN PRN Reason: Aggressive Correctional Scale Last Admin: 06/10/17 11:30 Dose: 3 unit Iron/Minerals/Multivitamins (Theragran M) 1 tab PO DAILY [facility] Last Admin: 06/10/17 09:19 Dose: 1 tab Loratadine (Claritin) 10 mg PO DAILYPRN PRN PRN Reason: Sinus Symptoms Lorazepam (Ativan) 1 mg PO Q4H PRN PRN Reason: Anxiety/Agitation Metformin HCl (Glucophage) 1,000 mg PO BID-[facility] Last Admin: 06/10/17 09:19 Dose: 1,000 mg Nitroglycerin (Nitrostat) 0.4 mg SL Q5MIN PRN PRN Reason: Chest Pain Ondansetron HCl (Zofran) 4 mg IVP Q6H PRN PRN Reason: Nausea/Vomiting Last Admin: 06/10/17 00:11 Dose: 4 mg Pantoprazole Sodium (Protonix) 40 mg PO DAILY [facility] Last Admin: 06/10/17 09:20 Dose: 40 mg Promethazine HCl (Phenergan) 12.5 mg IM Q4H PRN PRN Reason: Nausea Promethazine HCl (Phenergan) 12.5 mg SLOW IVP Q4H PRN PRN Reason: Nausea/Vomiting Senna (Senokot) 2 tab PO HSPRN PRN PRN Reason: Constipation Senna/Docusate Sodium (Senokot S) 2 tab PO BID [facility] Last Admin: 06/10/17 09:19 Dose: 2 tab Simvastatin (Zocor) 40 mg PO [facility] Last Admin: 06/09/17 20:28 Dose: 40 mg Sodium Chloride (Flush - Normal Saline) 10 ml IVF PRN PRN PRN Reason: Saline Flush Last Admin: 06/10/17 11:26 Dose: 10 ml Tramadol HCl (Ultram) 50 mg PO Q6H PRN PRN Reason: Mild Pain (1-3) Tramadol HCl (Ultram) 100 mg PO Q6H PRN PRN Reason: Mild Pain (1-3) Last Admin: 06/10/17 11:05 Dose: 100 mg Zolpidem Tartrate (Ambien) 5 mg PO HSPRN PRN PRN Reason: Insomnia
== END 2017-06-10 15:10 | disposition home or self-care (01) | DRG 470 ==
LOC: SURG A 06-08 05:32 → SJJU 06-08 10:33
PROVIDERS: ADMIT Orthopaedic Surgery; ATTEND Orthopaedic Surgery
PROC: 0SRD0J9 Replacement of Left Knee Joint with Synthetic Substitute, Cemented, Open Approach (ICD-10-PCS; principal; 2017-06-08)
PROC: 8E0YXBZ Computer Assisted Procedure of Lower Extremity (ICD-10-PCS; 2017-06-08)
PROC: 3E0T3BZ Introduction of Anesthetic Agent into Peripheral Nerves and Plexi, Percutaneous Approach (ICD-10-PCS; 2017-06-08)
DX: M17.32 Unilateral post-traumatic osteoarthritis, left knee (principal); E11.65 Type 2 diabetes mellitus with hyperglycemia; E78.5 Hyperlipidemia, unspecified; Z88.1 Allergy status to other antibiotic agents; Z88.0 Allergy status to penicillin; Z91.013 Allergy to seafood; Z83.3 Family history of diabetes mellitus; Z80.0 Family history of malignant neoplasm of digestive organs
CPT/HCPCS: 36415; 36416; 80048; 85027; C1713; C1776; G8978-GP-CL; G8979-GP-CJ; J1885; J1956; J2001; J2250; J2405; J2704; J2795; J3010; J3370; J7050

== ENCOUNTER 2021-04-30 10:58 | Outpatient (CLI) | payer BC, MEDICARE | END 2021-04-30 10:59 | disposition home or self-care (01) | LOC: BICRAD 10:58 | PROVIDERS: ATTEND Family Medicine | DX: M25.552 Pain in left hip (principal) ==